=== PATIENT | female | born 1940 | race Caucasian/White ===

== ENCOUNTER 2016-07-09 10:42 | Day surgery (SDC) | payer MEDICARE, BC ==
--- NOTE | 2016-07-09 06:51 | History and Physical Report ---
CHIEF COMPLAINT/HISTORY OF CHIEF COMPLAINT: This patient presents with a history of intractable lumbar radiculitis. Due to the failure of all therapy a spinal cord stimulator had been implanted on 11/15/14. Over time this system appeared to fail. We have complete lack of functionality. She was given the option to remove or replace and she opted to replace. PAST MEDICAL HISTORY: Chronic obstructive pulmonary disease, cardiac disease, mitral valve prolapse, and hypothyroidism. PAST SURGICAL HISTORY: Will be provided. SOCIAL HISTORY: Caffeine. FAMILY HISTORY: Noncontributory. MEDICATIONS ON ADMISSION: To be provided. ALLERGIES: None. REVIEW OF SYSTEMS: PHYSICAL EXAMINATION: Height is 5'8", weight is 160. No vital signs. HEENT: Within normal limits. LUNGS: Clear. HEART: Regular rate and rhythm. ABDOMEN: Nontender. MUSCULOSKELETAL: Examination of the musculoskeletal system shows the midline incisional site for the leads approximating T12-L1. Generator pouch at the left posterior gluteal margin identified and intact. Primary pain pattern to low back with a bilateral lumbar radicular component. Ambulation - No assistive device utilized. NEUROLOGIC: Cranial nerves are intact. IMPRESSION: 1. LUMBAR RADICULITIS, ICD10 CODE M54.16 AND M54.17. 2. SPINAL CORD STIMULATOR NONFUNCTIONAL. PLAN: The patient is here for removal of a nonfunctional system and replacement with a new system. The potential risks, side effects, and complications have all been carefully reviewed and discussed including nerve root injury and spinal tap. The patient understands all of the risks, has reviewed the risks not only provided through the clinic, but also provided through the cashier parking lot. All questions were answered. She has agreed and consented. The procedure will be considered outpatient although an overnight stay will be evaluated. STERLING TREVINO D.O. Date & Time JOB NUMBER: [id number] MTDD
[~2016-07-09 10:42] MED LIST: ACETAMINOPHEN 1000MG/100 ML PREMIX IV ONE; CEFAZOLIN 2 Gram 50 ML IVPB ONE; FAMOTIDINE 20MG TABLET PO ONE; MECLIZINE 25 MG TABLET PO ONE; METOCLOPRAMIDE 10 MG TABLET PO ONE
[2016-07-09] MEDS ORDERED: NALOXONE 0.4 MG/1 ML VIAL IVP ONE (14:00)
[2016-07-09] MEDS ORDERED: FENTANYL PF 100MCG/2ML VIAL IV ONE (14:00)
[2016-07-09] MEDS ORDERED: *PACU ONLY* KETAMINE HCL 10 MG/ML (20ML) VIAL IV ONE (14:00)
[2016-07-09] MEDS ORDERED: MIDAZOLAM HCL 2MG/2ML VIAL IV ONE (14:00)
[2016-07-09] MEDS ORDERED: PROPOFOL 10 MG/ML VIAL IV ONE (14:00)
[2016-07-09] MEDS ORDERED: LIDOCAINE 1% W/EPI 1:200,000 MPF 30ML SQ ONE (14:00)
[2016-07-09] MEDS ORDERED: BUPIVACAINE 0.5% W/EPI MPF 30 ML VIAL IVP ONE (14:00)
[2016-07-09] MEDS ORDERED: FLUMAZENIL 1MG/10ML VIAL IV ONE (14:00)
[2016-07-09] MEDS ORDERED: CEFAZOLIN 1G VIAL IM ONE (14:00)
[2016-07-09] MEDS ORDERED: METOCLOPRAMIDE HCL 10 MG/2 ML VIAL IVP PRN (16:18)
[2016-07-09] MEDS ORDERED: METOCLOPRAMIDE 10 MG TABLET PO PRN (16:18)
[2016-07-09] MEDS ORDERED: ACETAMINOPHEN 325 MG TAB PO PRN ×2 (16:18)
[2016-07-09] MEDS ORDERED: DIPHENHYDRAMINE HCL IV 50 MG/ML VIAL IVP PRN ×2 (16:18)
[2016-07-09] MEDS ORDERED: AL HYDROX/MAG HYDROX 30ML UD PO PRN (16:18)
[2016-07-09] MEDS ORDERED: HYDROMORPHONE HCL 2 MG/ML VIAL IM PRN (16:18)
[2016-07-09] MEDS ORDERED: HYDROMORPHONE HCL 1 MG/ML CPJ IM PRN (16:18)
[2016-07-09] MEDS ORDERED: DIPHENHYDRAMINE HCL 25 MG CAPSULE PO PRN ×2 (16:18)
[2016-07-09] MEDS ORDERED: SENNOSIDES/DOCUSATE SODIUM UD CAPSULE PO PRN ×2 (16:18)
[2016-07-09] MEDS ORDERED: OXYCODONE/APAP 10MG-325MG TABLET PO PRN (16:18)
[2016-07-09] MEDS ORDERED: TEMAZEPAM 15 MG CAPSULE PO PRN ×2 (16:18)
[2016-07-09] MEDS ORDERED: HYDROCODONE/APAP 7.5/325MG TABLET PO PRN ×2 (16:18)
[2016-07-09] MEDS ORDERED: ALPRAZOLAM 0.25 MG TABLET PO PRN (16:21)
[2016-07-09] MEDS: OXYCODONE/APAP 10MG-325MG TABLET PO PRN (18:19)
[2016-07-09] MEDS: CEFAZOLIN 2 Gram 50 ML IVPB SCH (19:06)
[2016-07-09] MEDS: CITALOPRAM 20 MG TABLET PO SCH (21:27)
[2016-07-09] MEDS: CARVEDILOL 3.125 MG TABLET PO SCH (21:27)
[2016-07-09] MEDS: 0.9 % SODIUM CHLORIDE 10ML SYR IVP SCH (21:43)
[2016-07-09] MEDS ORDERED: ATORVASTATIN 20 MG TABLET PO SCH (22:00)
[2016-07-10] MEDS: OXYCODONE/APAP 10MG-325MG TABLET PO PRN ×2 (00:40→09:26)
[2016-07-10] MEDS: CEFAZOLIN 2 Gram 50 ML IVPB SCH ×2 (02:43→10:13)
[2016-07-10] MEDS ORDERED: LEVOTHYROXINE SODIUM 150 MCG TABLET PO SCH (07:00)
[2016-07-10] MEDS: CITALOPRAM 20 MG TABLET PO SCH (09:27)
[2016-07-10] MEDS: CARVEDILOL 3.125 MG TABLET PO SCH (09:27)
[2016-07-10] MEDS: 0.9 % SODIUM CHLORIDE 10ML SYR IVP SCH (09:28)
[2016-07-10] MEDS ORDERED: LISINOPRIL 5 MG TABLET PO SCH (12:00)
--- NOTE | 2016-07-14 10:41 | Operative Note ---
DATE OF SURGERY: 07/09/2016 PREOPERATIVE DIAGNOSES: 1. Intractable lumbar radiculitis ICD10 M54.16 and M54.17. 2. Bilateral peripheral nerve stimulators with internal generator, nonfunctional. 3. Bilateral lumbar epidural spinal cord stimulators with internal generator, nonfunctional. OPERATION: 1. Fluoroscopic-guided incision, subcutaneous dissection, and removal of 2 indwelling implanted peripheral nerve stimulators. 2. Incision, subcutaneous dissection, and removal of 1 peripheral nerve stimulator internal pulse generator. 3. Incision, subcutaneous dissection, and removal of 2 implanted spinal cord stimulators. 4. Incision, subcutaneous dissection, and removal of internal pulse generator for spinal cord stimulator. 5. Fluoroscopic-guided epidural access left T12-L1 with placement of spinal cord stimulator lead 1, a [employer] 16, 6 electrodes, positioned, left T9. 6. Complex programming of lead 1, 20 minutes. 7. Fluoroscopic-guided epidural access T12-L1, right. Placement of spinal cord stimulator lead 2, a [employer] 16, 6 electrodes, positioned, right T9. 8. Complex programming of lead 2, 20 minutes. 9. Incision, subcutaneous dissection, anchoring of leads of leads and leads 2 to supraspinous fascia using anchoring device, [employer] locking. 10. Revision of right previous internal pulse generator pouch at right posterior superior gluteal margin. 11. Tunneling between lead 1 and lead 2 pouch into generator pouch, right. Interface inner lead with bifurcate extension, each bifurcate extension interfaced to generator. 12. Placement of generator into pouch, securing to fascia with nonabsorbable suture. 13. Closure of all incisions. Vicryl for fascia. Running subcuticular Vicryl for skin. Dermabond closure. 14. Complex recovery room programming internal generator to stimulators. Recovery room, 20 minutes. Anesthesia: Local sedation. Anesthesia Provider: Micheline MCCARTHY. Indication: This patient presents with a long history of intractable pain, both back and legs, multiple years. Previously, 2 peripheral nerve stimulators and internal generator followed by 2 spinal cord stimulators and internal generator had been placed. Four leads, 2 generators. Over the last 3-4 years, the system began to malfunction, eventually stopping complete functionality. The generators were evaluated, and she was given the option to replace or remove. She opted to replace with the new [employer] system, removing peripherals, and replacing epidurals. PROCEDURE: Intravenous line. Vital sign monitoring. IV sedation. Prepped and draped in sterile technique. Two internal pulse generator pouches, left and right of the midline in the posterior gluteal margin, infiltrated. Incision made. Subcutaneous dissection was conducted to generators. The generators were then both removed intact. Two peripheral nerve stimulators were identified and marked. Skin infiltrated. Incision made. Subcutaneous dissection was conducted, and the 2 peripheral nerve stimulators were removed intact. The midline incision for the previous epidural spinal cord stimulator was infiltrated and a local incision made. Subcutaneous dissection was conducted to the anchors. The anchors removed and the 2 epidural stimulators removed intact. At T12-L1, both left and right of the midline, skin inflated, and then 2 separate access cannulas were used to gain access to the epidural space. On left spinal cord stimulator lead 1, a [employer]on 16, 6 electrodes, positioned left of midline at T9. Epidural access with introducers right of the midline at 12-[address] spinal cord stimulator lead 2, also [employer] 16, 6 electrodes, positioned right of midline at T9. Complex programming of lead 1 over 20 minutes followed by complex programming of lead 2 over 20 minutes, ultimately resulting in complete pattern stimulation across the back and into the legs. Patient indicating where all the areas of the pain. She was given the option to implant this system or continue to program. She opted to implant the system. She was re-sedated, and then each of the leads was anchored to the supraspinous fascia using a [employer] and locking anchor. The right posterior gluteal margin generator pouch was then revised and enlarged to accommodate the new generator. A tunneling tool was used to carry the 2 leads into the generator pouch, and then each lead was interfaced with a bifurcate extension. Each bifurcate extension interfaced to the generator. Antibiotic irrigation and Bovie hemostasis. The generator was then placed into the pouch, secured to the posterior fascia using a nonabsorbable suture. At that point, all the incisions were closed. Vicryl for fascia. Running subcuticular Vicryl for skin. Dermabond closure system was placed over all incisions. She was transported to the recovery room stable, somewhat painful. She will be kept overnight for observation and pain control. In the morning, discharge. DISCHARGE INSTRUCTIONS: 1. Sites to remain clean and dry. No showering or bathing in any way that would disrupt dressings, although the Dermabond will allow showering. 2. Standard medication resumed including Levaquin the antibiotic 500 mg once a day for 14 days. 3. Standard medication resumed including the antibiotic. 4. She will be seen in the office in 5-7 days. During this period of time, she will keep her activities low. No bend, lift, push, pull. Once evaluated, will clear her for activities once the incisions have been evaluated. All of the instructions provided, numbers to contact if problems given. She will then be discharged in the morning. Leo Cody, DO [facility]
--- NOTE | 2016-07-15 13:05 | RADIOLOGY REPORT ---
EXAM: AP THORACOLUMBAR SPINE HISTORY: POST SPINAL CORD STIMULATOR IMPLANT PROCEDURE. TECHNIQUE: A single AP view of the thoracolumbar spine was obtained. Comparison: Thoracolumbar spine AP view 11/15/14. FINDINGS: The previously seen battery pack overlying the left iliac bone has been removed. There is probably a new battery pack overlying the right iliac bone today with associated wires extending up to the level of the body of T10. Correlation with the procedure itself is suggested. Some minor streaky atelectasis or infiltrate in the left base laterally. IMPRESSION: STIMULATOR WIRES PROJECT UP TO THE T10 LEVEL. JOB NUMBER: [id number] MTDD
== END 2016-07-10 11:25 | disposition home or self-care (01) ==
LOC: SUR 10:42 → MEDSURG 16:17 → SUR 07-10 11:25
PROVIDERS: ATTEND Pain Medicine Interventional Pain Medicine
DX: T85.192A Other mechanical complication of implanted electronic neurostimulator of spinal cord electrode (lead), initial encounter (principal); T85.191A Other mechanical complication of implanted electronic neurostimulator of peripheral nerve electrode (lead), initial encounter; T85.193A Other mechanical complication of implanted electronic neurostimulator, generator, initial encounter; M54.16 Radiculopathy, lumbar region; M54.17 Radiculopathy, lumbosacral region; Z79.01 Long term (current) use of anticoagulants; J44.9 Chronic obstructive pulmonary disease, unspecified; E03.9 Hypothyroidism, unspecified; I10 Essential (primary) hypertension; E78.00 Pure hypercholesterolemia, unspecified
CPT/HCPCS: 63663; 63685; 00300; 95972; 72020; J3010; J0690 ×2; J2310